=== PATIENT | female | born 1995 | race African-American/Black ===

== ENCOUNTER 2021-08-18 01:50 | Emergency (ER) | payer MEDICAID, OTHER ==
[~2021-08-18] VITALS: Ht 162.6 cm; Wt 81.6 kg
[2021-08-18 03:00] VITALS: BP 119/67
== END 2021-08-18 03:29 | disposition home or self-care (01) ==
LOC: ER 01:50 → EDBD 01:50 → ER 03:26
DX: M79.10 Myalgia, unspecified site (principal)
CPT/HCPCS: 93005